=== PATIENT | female | born 1970 ===

== ENCOUNTER → 2019-07-09 | Outpatient (REF) | payer MEDICAID ==
[2019-07-09 11:39] LABS: PLATELET COUNT, AUTOMATED 195 K/uL (150-450)
== END ==
PROVIDERS: ATTEND Nurse Practitioner Family
DX: R31.9 Hematuria, unspecified (principal); R82.90 Unspecified abnormal findings in urine; R50.81 Fever presenting with conditions classified elsewhere
CPT/HCPCS: 82040; 82247; 82310; 82374; 82435; 82565; 82947; 84075; 84132; 84155; 84295; 84450; 84460; 84520; 85025